=== PATIENT | male | born 1940 | race Two or more races ===

== ENCOUNTER 2020-03-02 06:35 | Day surgery (SDC) | payer OTHER ==
[~2020-03-02 06:35] MED LIST: HUMALOG100 UNIT/2 SQ; LANTUS SOL100 UNIT/1; TAMS0.4C PO; ZESTRIL40 M1 PO
== END 2020-03-02 14:05 | disposition home or self-care (01) ==
LOC: CIR.AMB 06:35
PROVIDERS: ATTEND Urology
DX: N47.1 Phimosis (principal); Z20.828 Contact with and (suspected) exposure to other viral communicable diseases